=== PATIENT | female | born 1995 ===

== ENCOUNTER 2017-11-29 02:59 | Observation (INO) | payer OTHER ==
[~2017-11-29] VITALS: Ht 162.6 cm; Wt 50.0 kg
[2017-11-29 03:31] LABS: COLLECTION METHOD CLEAN CATCH
[2017-11-29 03:41] LABS: BASO % 0.3 % (0.0-2.0); EOS % 0.3 % (0-4.0); LYMPH # 4.2 (1.2-3.4); LYMPH % 35.4 % (20.0-51.0); MEAN CELL VOLUME 92 fl (80.0-100.0); MEAN CORPUSCULAR HGB CONC 33 g/dl (33.0-37.0); MEAN PLATELET VOLUME 9.5 fl (7.4-10.4); MONO # 0.6 (0.1-0.6); MONO % 4.6 % (1.7-9.3); PLATELET COUNT 356 K/mm3 (130-400); REDCELL DISTRIBUTION WIDTH-CV 13.9 % (11.5-14.5)
[2017-11-29 03:42] LABS: MUCOUS Present /lpf; PH 6 (5-8); SQUAMOUS EPITHELIAL 0-2 /hpf; URINE APPEARANCE Clear; URINE BACTERIA Rare /hpf; URINE BILIRUBIN Negative (NEGATIVE); URINE BLOOD 3+ (NEGATIVE); URINE COLOR Straw; URINE GLUCOSE Negative (NEGATIVE); URINE KETONE Negative (NEGATIVE); URINE LEUKOCYTE ESTERASE Negative (NEGATIVE); URINE NITRATE Negative (NEGATIVE); URINE PROTEIN(semi-quant) Negative (NEGATIVE); URINE RBC 0-2 /hpf; URINE UROBILINOGEN Negative (NEGATIVE)
[2017-11-29 03:48] LABS: HEMATOCRIT 35.9 % (37.0-47.0); HEMOGLOBIN 11.8 g/dl (12.5-16.0); MEAN CORPUSCULAR HEMOGLOBIN 30 pg (27.0-31.0)
[2017-11-29 03:56] LABS: ALBUMIN 4.6 gm/dL (3.5-5.0); BILIRUBIN,TOTAL 0.2 mg/dL (0.0-1.0); CREATININE, serum 0.6 mg/dL (0.52-1.25); POTASSIUM 3.2 mmol/L (3.4-5.0)
[2017-11-29 10:14] VITALS: BP 108/62; PULSE 87; TEMP 98.4
[2017-11-29 12:22] VITALS: BP 110/59; PULSE 85; TEMP 98.5
[2017-11-29 15:33] VITALS: BP 103/47; PULSE 69; TEMP 98.1
[2017-11-29 16:25] LABS: HEMATOCRIT 32.8 % (37.0-47.0); HEMOGLOBIN 11.1 g/dl (12.5-16.0)
[2017-11-29 17:16] VITALS: BP 105/50; PULSE 70; TEMP 98.3
[2017-11-29 17:37] VITALS: BP 105/50; PULSE 69; TEMP 98.3
[2017-11-29 22:24] VITALS: BP 128/57; PULSE 76; TEMP 98
[2017-11-30 02:36] VITALS: BP 105/39; PULSE 61; TEMP 98.2
[2017-11-30 06:29] VITALS: BP 113/55; PULSE 69; TEMP 98.5
[2017-11-30 07:11] LABS: HEMATOCRIT 31.6 % (37.0-47.0); HEMOGLOBIN 10.3 g/dl (12.5-16.0)
[2017-11-30 09:30] VITALS: BP 107/42; PULSE 66; TEMP 98.2
== END 2017-11-30 13:45 | disposition home or self-care (01) ==
LOC: COL.ER 02:59 → SURG 08:31
PROVIDERS: Emergency Medicine; Surgery
DX: S71.121A Laceration with foreign body, right thigh, initial encounter (principal); S01.121A Laceration with foreign body of right eyelid and periocular area, initial encounter; R40.2422 Glasgow coma scale score 9-12, at arrival to emergency department; V89.2XXA Person injured in unspecified motor-vehicle accident, traffic, initial encounter
CPT/HCPCS: G0378; J0690; J1170; J1885; J2060; J2405; J3010; J7030